=== PATIENT | female | born 1935 | race Caucasian/White ===

== ENCOUNTER → 2017-06-14 20:25 | Outpatient (CLI) | payer MEDICARE, OTHER | END | disposition home or self-care (01) | LOC: D.LABREF 20:25 | DX: R06.00 Dyspnea, unspecified (principal) ==

== ENCOUNTER → 2017-08-02 20:36 | Outpatient (CLI) | payer MEDICARE, OTHER ==
[~2017-08-02 20:36] MED LIST: ADVAIR 100/501 DISK INH; ALENDRONATE SOD70 MG PO; CATAPRES0.1 MG PO; ENTRESTO 49 MG1 EACH PO; FUROSEMIDE40 MG PO; HYDROCODON-ACE1 EAC7 PO; KLONOPIN1 MG PO; LUNESTA3 MG PO; METOPROLOL TART50 MG PO; MYSOLINE 50 MG50 MG PO; REQUIP4 MG PO; SPIRIVA18 MCG INH; SYNTHROID150 MCG PO; TIMOPTIC 0.5 % O5 ML EACH EYE; ULTRAM50 MG PO
[2017-08-02 21:07] LABS: CALCIUM 8.2 mg/dL (8.5-10.1); CARBON DIOXIDE 29.1 mmol/L (21.0-32.0); CREATININE - SERUM 1.4 mg/dL (0.6-1.3); POTASSIUM - SERUM 5.1 mmol/L (3.5-5.1)
[2017-10-12 07:50] VITALS: BMI 19.0
== END | disposition home or self-care (01) ==
LOC: D.LABREF 20:36
PROVIDERS: Internal Medicine Cardiovascular Disease
DX: I50.9 Heart failure, unspecified (principal)

== ENCOUNTER 2017-10-12 07:11 | Outpatient (CLI) | payer MEDICARE, OTHER ==
[~2017-10-12] VITALS: Ht 167.6 cm; Wt 53.6 kg
--- NOTE | ~2017-10-12 | HEMODYNAMI ---
PATIENT:JARED ALVAREZ MEDICAL RECORD: [id number] : 35 LOCATION:[facility] ADMISSION DATE: 10/12/17 Generatedon:10/12/20179:46 Patient name: JARED ALVAREZ Patient #: [id number] SSN: : 1935 Date of study: 10/12/2017 Page: Of Hemodynamic Procedure Report Patient Data Patient Demographics Procedure consent was obtained First Name: JARED Gender: Female Last Name: KIM : 1935 Patient #: [id number] Age: 82 year(s) Race: Unknown Additional ID: [id number] Contact details Address: [address] [place] [address] State: [place] City: [facility] Zip code: [address] Past Medical History Allergies Allergen Reaction Date Comments Reported Other allergy 10/12/2017 Neurontin, Betadine Admission Admission Data Admission Date: 10/12/2017 Admission Time: 7:11 Procedure Procedure Types Cath Procedure Diagnostic Procedure Right Heart RHC and LHC w/Coronaries Miscellaneous Procedures Moderate Sedation up to 15 minutes Procedure Description Procedure Date Procedure Date: 10/12/2017 Procedure Start Time: 9:21 Procedure End Time: 9:45 Procedure Staff Name Function Emmett York MD Performing Physician Sandy Whipple RT Monitor Christina Pastrana RT Scrub Margarita Neil RN Nurse Procedure Data Cath Procedure Fluoroscopy Diagnostic fluoroscopy Total fluoroscopy Time: 2.1 time: 2.1 min min Diagnostic fluoroscopy Total fluoroscopy dose: 125 dose: 125 mGy mGy Contrast Material Contrast Material Type Amount (ml) Isovue 300 51 Entry Location Entry Primary Successful Side Size Upsize Upsize Entry Closure Solomon ccessful Closure Location (Fr) 1 (Fr) 2 (Fr) Remarks Device Remarks Femoral Right 7 Fr Manual vein Short Compression Femoral Right 5 Fr Exoseal artery Estimated blood loss: 10 ml Diagnostic catheters Device Type Used For End Catheter Placement SWAN 7Fr Thermodilution Pressure cather (131F7P) Measurement MULTIPACK JL 4.0 5Fr Procedure catheter MULTIPACK 3DRC 5Fr Procedure catheter MULTIPACK Pigtail 5 Fr Ventriculography catheter Procedure Complications No complications Procedure Medications Medication Administration Route Dosage 0.9% NaCl I.V. Oxygen NC 2 l/min Lidocaine 2% added to field 20 Heparin Flush Bag added to field 2 bags (1000units/500ml NS) Versed I.V. 0.5 mg Versed I.V. 0.5 mg Hemodynamics Rest Heart Rate: 78 (bpm) Oxygen Saturations Time Location Saturations Hgb (g/dl) O2 Content Use (%) (ml/L) 9:30 PCW 97.9 9:31 AO 97.3 9:33 PA 70.5 9:33 RA 69.7 Pressure Samples Time Site Value (mmHg) Purpose Heart Use Rate(bpm) 9:26 PCW 22/21(19) Snapshot 76 9:28 PA 49/21(31) Snapshot 74 9:32 RV 50/6,5 Snapshot 61 9:32 RV 47/10,11 Snapshot 88 9:32 RA 16/15(14) Snapshot 72 9:39 LV 152/4,11 EDP 83 Gradients Valve Time Site Site Mean SEP/DFP Peak To Heart Use 1 2 (mmHg) (sec/min) Peak Rate (mmHg) (bpm) Aortic 9:41 LV AO 75 Thermodilution Cardiac Output Time Cardiac Output (l/min) Use 9:30 4.04 l/m 9:31 3.7 l/m Calculations Vascular Value Indexed CO SV CO CI Resistance (dyne) values (ml/beat) (l/min) (l/(min*m)) TPVR 649.22 Thermal 51.95 3.87 PVR 251.94 Source Thermal Systolic Diastolic Ejection Regurgitation SW SWI Vol. Vol. (%) (%) Right 12.02 Source Thermal Snapshots Thermal Samples Pre Cath Intra NCS Post Cath Vital Signs Time Heart Resp SPO2 etCO2 NIBP (mmHg) Rhythm Pain Sedation Rate (ipm) (%) (mmHg) Status Level (bpm) 8:57:38 72 23 97 15.7 135/86(113) NSR 0 (11) 10(A) , No pain 9:01:50 75 23 99 14.9 135/67(106) NSR 0 (11) 10(A) , No pain 9:06:04 88 18 99 17.9 127/65(125) NSR 0 (11) 10(A) , No pain 9:10:13 100 17 99 20.2 127/68(106) NSR 0 (11) 10(A) , No pain 9:14:19 101 23 99 20.2 118/78(101) NSR 0 (11) 10(A) , No pain 9:18:29 105 16 99 24.7 133/59(101) NSR 0 (11) 10(A) , No pain 9:23:28 99 21 97 23.2 Measuring NSR 0 (11) 10(A) , No pain 9:23:47 83 23 97 19.5 112/63(96) NSR 0 (11) 10(A) , No pain 9:27:50 76 20 97 21 110/65(97) NSR 0 (11) 10(A) , No pain 9:31:58 77 19 97 21 90/57(78) NSR 0 (11) 10(A) , No pain 9:36:51 104 20 97 20.2 106/61(85) NSR 0 (11) 10(A) , No pain 9:40:57 76 20 97 21.7 114/56(98) NSR 0 (11) 10(A) , No pain 9:45:01 101 26 97 18 115/70(93) NSR 0 (11) 10(A) , No pain Medications Time Medication Route Dose Verified Delivered Reason Notes Effec tiveness by by 9:08:22 0.9% NaCl I.V. kvo Emmett Margarita used for ml/hr Chela Neil RN procedure 9:08:37 Oxygen NC 2 Emmett Margarita used for l/min Chela elena MD 9:08:45 Lidocaine 2% added 20ml Emmett Emmett for local to vial Chela York MD anesthetic field FRY 9:08:51 Heparin Flush added 2 Emmett Emmett used for Bag to bags Chela York MD procedure (1000units/500ml field FRY NS) 9:22:41 Versed I.V. 0.5 Emmett Margarita for mg Chela Neil RN sedation 9:38:19 Versed I.V. 0.5 Emmett Margarita for mg Norred Neil RN sedation MD Procedure Log Time Note 8:56:30 Vital chart was started 9:03:00 Diagnostic Cath status Elective 9:03:02 Sandy Whipple RT(R) sent for patient. Start room use. 9:03:03 Time tracking: Regular hours 9:03:07 Plan of Care:Hemodynamics will remain stable., Cardiac rhythm will remain stable., Comfort level will be maintained., Respiratory function will remain adequate., Patient/ family verbilizes understanding of procedure., Procedure tolerated without complication., Recovers from procedure without complications.. 9:03:12 Patient received from Pre/Post Procedure Room to CCL 2 Alert and oriented. Tansferred to table in Supine position. 9:03:14 Warm blankets applied, and mihir hugger turned on for patient comfort. 9:03:14 Correct patient and procedure confirmed by team. 9:03:16 Signed procedure consent form obtained from patient. 9:03:17 ECG and BP/O2 sat monitors applied to patient. 9:03:20 Baseline sample Acquired. 9:03:26 Rhythm: sinus rhythm 9:03:28 Full Disclosure recording started 9:03:44 H&P Date Dictated: 10/11/2017 Within 30 days and on chart., H&P Addendum completed by physician on day of procedure. (MUST COMPLETE FOR ALL OUTPATIENTS). 9:03:46 Pre-procedure instructions explained to patient. 9:03:49 Family in waiting room. 9:03:50 Patient NPO since Midnight. 9:04:39 Patient allergic to Other allergyNeurontin, Betadine 9:04:54 Is the patient allergic to Iodine/contrast media? No. 9:05:00 Is patient on blood thinner?No 9:05:03 Patient diabetic? No. 9:05:08 Snore? No 9:05:10 Sleep apnea? No 9:05:37 Airway obstruction? Yes COPD 9:05:42 Dentures? Yes tight 9:05:48 Patient pain scale 0/10 ?. 9:05:54 IV patent on arrival in left antecubital with 0.9% NaCl at KVO. 9:06:25 Lab results completed and on chart. 9:06:30 Right groin area was prepped with chlora-prep and draped in sterile fashion 9:06:31 Alarms reviewed by RTatyana NTatyana 9:06:32 Sharps counted by scrub and verified by R.N. 9:06:33 Physician paged 9:06:34 Physician arrived 9:06:34 --------ALL STOP TIME OUT------ 9:06:36 Final Timeout: patient, procedure, and site verified with staff and physician. All members of the team are in agreement. 9:06:38 Right groin site verified by team. 9:06:44 Physical assessment completed. ASA score P 2 - A patient with mild systemic disease as per Emmett York MD. 9:07:00 Use device set Femoral Dx 9:08:08 ACIST Syringe (71764) opened to sterile field. 9:08:09 Bag Decanter (2002S) opened to sterile field. 9:08:09 Medline Cath Pack ([id number]) opened to sterile field. 9:08:13 DIAGNOSTIC WIRE .035 260cm J wire (169877) opened to sterile field. 9:08:16 ACIST Hand Control (70759) opened to sterile field. 9:08:17 ACIST Manifold (54640) opened to sterile field. 9:08:22 0.9% NaCl kvo ml/hr I.V. was administered by Margarita Neil RN; used for procedure; 9:08:24 DIAGNOSTIC Multipack 5Fr catheter set ([id number]) opened to sterile field. 9:08:26 Tegaderm 4 x 4 (1626W) opened to sterile field. 9:08:29 PERCUTANEOUS ENTRY 19GA needle opened to sterile field. 9:08:29 MICROPUNCTURE 4FR Cook ([id number]) opened to sterile field. 9:08:37 Oxygen 2 l/min NC was administered by Margarita Neil RN; used for procedure; 9:08:45 Lidocaine 2% 20ml vial added to field was administered by Emmett York MD; for local anesthetic; 9:08:50 Micropuncture VSI 4FR kit opened to sterile field. 9:08:51 Heparin Flush Bag (1000units/500ml NS) 2 bags added to field was administered by Emmett York MD; used for procedure; 9:09:48 SHEATH 7FR [place] (AUK298) opened to sterile field. 9:09:51 SHEATH 5FR [place] (MDE184) opened to sterile field. 9:10:12 Zero performed for pressure channel P1 9:20:45 Sedation plan: IV Moderate Sedation Medication:Versed 9:20:51 Procedure started. 9:21:04 Local anesthetic to right femoral artery with Lidocaine 2% by Emmett York MD.INITIAL ACCESS ONLY 9:22:41 Versed 0.5 mg I.V. was administered by Margarita Neil RN; for sedation; 9:23:13 Access obtained with 4Fr micropunture. 9:23:29 A 7 Fr Short sheath was inserted into the Right Femoral vein 9:23:48 A 5 Fr sheath was inserted into the Right Femoral artery 9:24:31 Patton-Jeff "C" tip catheter inserted 9:25:34 A SWAN 7Fr Thermodilution cather (131F7P) was advanced over the wire and used for Pressure Measurement. 9:30:28 Thermodilution performed using a Lawrence 131F7 7.0 Fr 19-22C 10.00 mL. Injectate temperature was 17.31 C, CO: 4.04 L/min, average CO: 3.87 L/min 9:30:44 PCW saturation: 97.9% 9:31:09 AO saturation: 97.3% 9:31:15 Thermodilution performed using a Lawrence 131F7 7.0 Fr 19-22C 10.00 mL. Injectate temperature was 17.34 C, CO: 3.70 L/min, average CO: 3.87 L/min 9:33:10 PA saturation: 70.5% 9:33:39 RA saturation: 69.7% 9:34:34 Catheter removed. 9:34:46 A MULTIPACK JL 4.0 5Fr catheter was advanced over the wire and used for Procedure. 9:36:14 Catheter removed. 9:36:24 A MULTIPACK 3DRC 5Fr catheter was advanced over the wire and used for Procedure. 9:38:19 Versed 0.5 mg I.V. was administered by Margarita Neil RN; for sedation; 9:38:26 Catheter removed. 9:38:49 A MULTIPACK Pigtail 5 Fr catheter was advanced over the wire and used for Ventriculography. 9:41:02 Catheter removed. 9:41:05 EXOSEAL 5Fr (EX500) opened to sterile field. 9:42:06 Sheath removed intact; hemostasis achieved with Exoseal to the Right Femoral artery. 9:42:18 Sheath removed intact; hemostasis achieved with Manual Compression to the Right Femoral vein. 9:42:21 Procedure ended.(Physican Out) 9:43:03 Fluoroscopy time 02.10 minutes. 9:43:07 Fluoroscopy dose: 125 mGy 9:43:07 Flurop Dose total: 125 9:43:20 Contrast amount:Isovue 300 51ml. 9:43:22 Sharps counted by scrub and verified by R.N. 9:43:24 Insertion/operative site no bleeding no hematoma. 9:43:46 Post-op/insertion site Right Femoral artery dressed using a 4 x 4 and Tegaderm. 9:43:49 Post-op/insertion site Right Femoral vein dressed using a 4 x 4 and Tegaderm. 9:44:46 Post Procedure Pulses reassessed and unchanged 9:44:50 Post-procedure physical assessment completed. ASA score P 2 - A patient with mild systemic disease as per Emmett York MD. 9:44:54 Post procedure rhythm: unchanged. 9:44:58 Estimated blood loss: 10 ml 9:44:59 Post procedure instruction explained to patient.Patient verbalizes understanding. 9:45:15 Procedure type changed to Cath procedure, Diagnostic procedure, Right Heart, RHC and LHC w/Coronaries, Miscellaneous Procedures, Moderate Sedation up to 15 minutes 9:45:17 Procedure and supply charges have been captured, reviewed, submitted and are correct. 9:45:35 Procedure Complication : No complications 9:45:37 Vital chart was stopped 9:45:39 See physician's report for complete and final results. 9:45:45 Report given to Pre/Post Procedure Room. 9:45:49 Patient transfered to Pre/Post Procedure Room with Stretcher. 9:45:52 Procedure ended. 9:45:52 Full Disclosure recording stopped 9:45:58 End room use (Document Last) Device Usage Item Name Manufacture Quantity Catalog Hospital Part Current Minima l Lot# / Number Charge Number Stock Stock Serial# Code ACIST Syringe Acist 1 11634 [id number] 369990 084571 20 (20220) Medical Productify Inc Bag Decanter Microtek 1 722501 76113 659622 5 () Medical Inc. Medline Cath Cardinal 1 [id number] 650862 92764 196664 5 [employer] Stix ([id number]) DIAGNOSTIC St Ricardo 1 134110 980993 173251 737109 30 WIRE .035 260cm J wire (136290) ACIST Hand Acist 1 74951 484169 344707 369214 5 Control Medical (18991) Systems Inc ACIST Manifold Acist 1 03230 679387 756630 014132 5 (51013) Medical Systems Inc DIAGNOSTIC Cardinal 1 [id number] 222011 09785 649722 30 Multipack 5Fr Health catheter set (SQ3758) Tegaderm 4 x 4 3M 1 1626W 453574 200026 176822 5 (1626W) PERCUTANEOUS Stemina Biomarker Discovery 1 [id number] 239892 353430 5 ENTRY 19GA needle MICROPUNCTURE Cook Medical 1 J03478 456887 795751 190298 5 4FR Cook (O77223) Micropuncture VSI VASCULAR 1 7266V 594985 805432 5 VSI 4FR kit SOLUTIONS SHEATH 7FR Terumo 1 WMI373 544942 860006 558641 5 [place] (PFU512) SHEATH 5FR Terumo 1 SUB721 509064 892548 906348 40 [place] (DAT832) SWAN 7Fr Lawrence 1 131F7P 762888 67489 896512 3 Thermodilution Lifesciences cather (131F7P) MULTIPACK JL Cardinal 1 062263 5 4.0 5Fr Health catheter MULTIPACK 3DRC Cardinal 1 075754 5 5Fr catheter Health MULTIPACK Cardinal 1 041860 5 Pigtail 5 Fr Health catheter EXOSEAL 5Fr Cardinal 1 EX500 100816 943190 609235 10 (EX500) Health Signature Audit [place] Stage Time Signature Unsigned Intra-Procedure 10/12/2017 Sandy Whipple 9:46:12 AM RT(R) Signatures Monitor : Sandy Whipple Signature : RT Date : Time : [facility] [address] [place] [place] [address]
[2017-10-12] MEDS ORDERED: REQUIP4 MG PO (07:32)
[2017-10-12] MEDS ORDERED: ULTRAM50 MG PO (07:33)
[2017-10-12] MEDS ORDERED: HYDROCODON-ACE1 EAC7 PO (07:33)
[2017-10-12] MEDS ORDERED: KLONOPIN1 MG PO (07:34)
[2017-10-12] MEDS ORDERED: FUROSEMIDE40 MG PO (07:34)
[2017-10-12] MEDS ORDERED: CATAPRES0.1 MG PO (07:35)
[2017-10-12] MEDS ORDERED: SYNTHROID150 MCG PO (07:35)
[2017-10-12] MEDS ORDERED: TIMOPTIC 0.5 % O5 ML EACH EYE (07:36)
[2017-10-12] MEDS ORDERED: ADVAIR 100/501 DISK INH (07:36)
[2017-10-12] MEDS ORDERED: SPIRIVA18 MCG INH (07:36)
[2017-10-12] MEDS ORDERED: METOPROLOL TART50 MG PO (07:37)
[2017-10-12] MEDS ORDERED: ENTRESTO 49 MG1 EACH PO (07:37)
[2017-10-12] MEDS ORDERED: LUNESTA3 MG PO (07:37)
[2017-10-12] MEDS ORDERED: ALENDRONATE SOD70 MG PO (07:38)
[2017-10-12] MEDS ORDERED: MYSOLINE 50 MG50 MG PO (07:39)
[2017-10-12 07:50] VITALS: BP 125/61; Ht 167.6 cm; Wt 53.6 kg
[2017-10-12 08:19] LABS: BASOPHILS 0.1 % (0-2); EOSINOPHILS 4.1 % (0-7); HEMATOCRIT 37.6 % (36.0-48.0); HEMOGLOBIN 12.5 g/dL (12-16); IMMATURE GRANULOCYTES 0.1 % (0-5); LYMPHOCYTES 17.8 % (15-50); MCH 30.9 pg (26.0-34.0); MCHC 33.2 g/dL (31.0-37.0); MCV 92.8 fL (80.0-100.0); MEAN PLATELET VOLUME 9.8 fL (7.4-10.4); MONOCYTES 11.3 % (2-11); NEUTROPHILS 66.6 % (40-80); PLATELET COUNT 257 10x3/uL (130-400); RBC 4.05 10x6/uL (4.00-5.40); RDW 13.5 % (11.5-14.5); WBC 7.8 10x3/uL (4.8-10.8)
[2017-10-12 08:30] LABS: ANION GAP 12.9 mmol/L (8-16); CALCIUM 9.1 mg/dL (8.5-10.1); CARBON DIOXIDE 28.3 mmol/L (21.0-32.0); POTASSIUM - SERUM 4.2 mmol/L (3.5-5.1)
--- NOTE | 2017-10-12 10:07 | NUR ---
1000 RECEIVED PT FROM TAIL PULLER.PT IS ALERT. PT DENIES ANY C/O PAIN OR NAUSEA. DRESSING TO RIGHT GROIN IS CDI, AREA SOFT AND NONTENDER. PEDAL PULSES PALPABLE. NSR, RATE OF 82, BP IS 138/55.RR IS EVEN AND UNLABORED. INSTRUCTED PT TO KEEP HEAD TO PILLOW AND RIGHT LEG STRAIGHT AND PT VERBALIZES UNDERSTANDING. AT BEDSIDE AND CALL LIGHT IN REACH. WILL CONTINUE TO MONITOR.
--- NOTE | 2017-10-12 10:15 | NUR ---
1015 PT DENIES ANY C/O. DRESSING RIGHT GROIN IS CDI, AREA SOFT AND NONTENDER. PEDAL PULSES PALPABLE.
--- NOTE | 2017-10-12 10:30 | NUR ---
1030 PT RESTING QUIETLY, RR IS EVEN AND UNLABORED. DRESSING TO RIGHT GROIN IS CDI, AREA SOFT AND NONTENDER. PEDAL PULSES PALPABLE. AT BEDSIDE, CALL LIGHT IN REACH.
--- NOTE | 2017-10-12 11:10 | NUR ---
1045 PO FLUIDS SERVED. DRESSING CDI. PEDAL PULSES PALPABLE. PT DENIES ANY C/O, AT BEDSIDE.
--- NOTE | 2017-10-12 11:18 | NUR ---
PT DENIES ANY C/O. DRESSING TO RIGHT GROIN IS CDI, AREA IS SOFT AND NONTENDER. PEDAL PULSES PALPABLE. AT BEDSIDE, DENIES NEEDS AT THIS TIME.
--- NOTE | 2017-10-12 11:30 | NUR ---
HOB ELEVATED AND SANDWICH SERVED. DRESSING TO RIGHT GROIN IS CDI, AREA IS SOFT AND NONTENDER. PEDAL PULSES PALPABLE. AT BEDSIDE. VSS, RR EVEN AND UNLABORED.
--- NOTE | 2017-10-12 11:41 | NUR ---
REVIEWED DC INSTRUCTIONS WITH PT AND HER WHO VERBALIZE UNDERSTANDING. WRITTEN COPIES PROVIDED. DRESSING RIGHT GROIN IS CDI. PT MELISSA SANDWICH WITH NO C/O NAUSEA.
--- NOTE | 2017-10-12 12:38 | NUR ---
1200 IV DC'D WITH CATH INTACT. ASSISTED PT WITH DRESSING FOR DC TO HOME. 1215 ASSISTED PT TO THE RESTROOM, PT VOIDED QS. PT DENIES ANY C/O. DRESSING TO RIGHT GROIN IS CDI, AREA SOFT AND NONTENDER. PT ESCORTED TO PRIVATE AUTO VIA WC BY NURSE WITH DRIVING HER HOME.
== END 2017-10-12 12:15 | disposition home or self-care (01) ==
LOC: D.CATH 07:11
PROVIDERS: Internal Medicine Cardiovascular Disease
DX: I27.20 Pulmonary hypertension, unspecified (principal); I25.10 Atherosclerotic heart disease of native coronary artery without angina pectoris; I34.0 Nonrheumatic mitral (valve) insufficiency; Z01.812 Encounter for preprocedural laboratory examination

== ENCOUNTER → 2018-02-26 08:30 | Outpatient (CLI) | payer MEDICARE, OTHER ==
[2017-10-12 07:50] VITALS: BMI 19.0
--- NOTE | ~2018-02-26 | EC ---
PATIENT:JARED ALVAREZ DATE OF SERVICE: 02/26/18 SEX: F MEDICAL RECORD: [id number] DATE OF : 35 [facility] AGE OF PATIENT: 82 ADMISSION DATE: 02/26/18 REFERRING PHYSICIAN: INTERPRETING PHYSICIAN: DARSHAN ROBLES MD ECHOCARDIOGRAM REPORT ECHO CHARGES 4 ECHO COMPLETE Date: 02/26 CLINICAL DIAGNOSIS: CHF/MR ECHOCARDIOGRAPHIC MEASUREMENTS (adult normal given) AC root (d.<3.7cm) 3.2 cm LV Septum d (<1.2 cm> 1.6 cm Valve Excursion 1.6 cm LV Septum (systole) 2.3 cm Left Atria (s.<4.0cm> 4.2 cm LVPW d(<1.2cm) 1.1 cm RV (d.<2.3cm) 2.0 cm LVPW (sytole) 1.9 cm LV diastole(<5.6CM) 4.0 cm MV E-F(>70mm/sec) cm LV systole 1.2 cm LVOT Diameter 1.7 cm MV exc.(>10mm) cm Est.ejection fraction (50-75%) % DOPPLER: LVIT cm/sec A 150 cm/sec E 180 cm/sec LA cm/sec RVSP 56.1 mmHg LVOT 132 cm/sec AOP1/2T m/s Asc. 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 Robles TAPE# PACS Pericardial Effusion N DATE OF SERVICE: PROCEDURE: Transthoracic echocardiogram. FINDINGS: 1. The left ventricle has mild left ventricular hypertrophy. Inflow characteristics are normal. Ejection fraction is 55%. There is no obvious regional wall motion abnormalities. 2. The left atrium is mildly dilated. 3. The aortic valve is mildly thickened. There is no evidence of aortic ECHOCARDIOGRAM REPORT [id number] JARED ALVAREZ stenosis. 4. The mitral valve has moderate mitral valve regurgitation. The mitral valve leaflets are thickened. There is mitral annular calcification. 5. The tricuspid valve has moderate tricuspid regurgitation. The RVSP of 50-55 mmHg. 6. The right ventricle is normal size, normal function. 7. The right atrium is normal size, normal function. 8. The pulmonic valve is not well visualized. Trace pulmonic insufficiency. 9. Pericardium has trace pericardial effusion without tamponade. CONCLUSION: The patient has evidence of hypertensive heart disease with moderate mitral regurgitation. TRANSINT:[id number] Voice Confirmation ID: [id number] DOCUMENT ID: [id number] DARSHAN ROBLES MD at 0942 CC: [id number] DICTATION DATE: 02/27/18 0748 PATIENT ASSISTANT: 02/27/18 1156 DEP CLI 02/26/18 [facility] [address] [place] [address]
== END | disposition home or self-care (01) ==
LOC: D.ECHO 11-22 10:00
DX: I50.9 Heart failure, unspecified (principal)